=== PATIENT | female | born 2000 | race Caucasian/White ===

== ENCOUNTER 2021-06-04 04:57 | Inpatient (IN) | payer MEDICAID, SELFPAY ==
[2021-06-04 04:57] VITALS: BP 122/86; PULSE 81; RESP 18; TEMP 36.7; O2SAT 99
[2021-06-04 04:59] VITALS: BMI 21.9
[2021-06-04 05:49] VITALS: BMI 21.9
[2021-06-04 06:00] VITALS: TEMP 36.7
[2021-06-04] MEDS: prenatal vitamin Capsule 1 CAP PO (09:25)
[2021-06-04 14:00] VITALS: BP 101/64; PULSE 81; RESP 18; TEMP 36.8; O2SAT 100
--- NOTE | 2021-06-04 14:15 | P.NPUHP_ITS ---
Providers/Chief Complaint Admitting Physician: Jose Carlos Jones MD Chief Complaint: SI HPI NPU History of Present Illness Angelina Yadav is a 21 year old female who presented to an outside hospital secondary to an overdose on pills. There are reports that there is some conflict with her boyfriend about her and him not wanting her to continue with it, so she took an overdose of pills. She presents today reporting she has never had psychiatric hospitalization, she has never had outpatient services, and she has never been on medication. She denies cigarettes, alcohol, marijuana, or any other illicit drugs. She reports she has never been involved with it, never had rehab, never had a DUI. She reports the reason for this situation is stress and hormones. She reports she is stressed because of school and hormones from being . She did not mention the concerns that were raised at the outside hospital. She reports that she does have what she calls stress from time to time. She denies feelings of helplessness, hopelessness, or worthlessness. She denies sleep dysregulation. She denies previous suicide attempts, but when we talked about things moving forward, she reports she has passive wish essentially all the time. She then corrected herself and said not all the time but a lot, that when she gets stressed, she will often have thoughts about just wishing she was not alive. She reports that she is in school, which is stressful, she has a 2-year-old, which is stressful, and mostly the idea of raising a child while being in school has been overwhelming recently at times. When I directly asked her about the issue with her boyfriend and the , she would not identify that that was a driving force, but she was also a very resistant historian, who much of the time during the interview, she would seem annoyed that I was asking the question. She denies any history of self-injurious behavior and denies that there is anything wrong with her. I raised the point that I do not know her well enough to know that there is something specifically wrong with her, but that having a son that is depending on her, a blossoming career through her efforts in school, and all of a sudden taking pills in a suicide attempt, is not a good situation and could reflect something underlying being wrong. PSYCHIATRIC HISTORY: As above. SUBSTANCE ABUSE HISTORY: As above. FAMILY HISTORY: There are no addiction issues on either side of the family, and no suicide attempts or completions in the family reported. DEVELOPMENTAL HISTORY: She denies any issues with her mother?s or delivery of her. She met all developmental milestones on time. She denies any speech therapy, learning support, emotional support, or special education classes. PSYCHOSOCIAL HISTORY: She reports her parents were not really together when she was born, and she is the only product of that union. She has a younger half-sister through her mother and half-siblings through her father, but she does not know how many, and she does not know them. She reports her childhood was fine, and she denied emotional, physical, or sexual abuse. Again, I do not know many of these questions if she would have told me if there was. She denies any other traumas. She reports she graduated from high school, started college in 2019 in biology. She reports that she is interested in natural pharmaceuticals. She endorses being a heterosexual with her longest relationship being off and on for ten years. She reports that she has never been officially . She has a 2-year-old son who turned 2 on May 19. She has never been in the and denies any scientology belief system. 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 She reports she li ves in an apartment with her boyfriend and her son. LEGAL HISTORY: Denied. MEDICAL HISTORY: She denies any issues other than being . She has had one previous . Meds NPU Home Medications Medication Instructions Recorded Confirmed Last Taken Type Multivitamins 1 tab PO DAILY 06/04/21 06/04/21 Unknown History Allergies Allergy/AdvReac Type Severity Reaction Status Date / Time No Known Allergies Allergy Verified 06/04/21 05:55 Mental Status Exam MSE Comments: This is a well-nourished, well-developed, , female, in hospital scrubs, with adequate grooming, and eye contact. No abnormal movements except for mild psychomotor agitation. Semi-cooperative with exam in mild distress. Speech was limited and decreased rate and volume. Mood described as fine; affect irritable. Thought process, organized. Thought content: patient denied any suicidal or homicidal ideation, there were no delusions reported or noted, patient denied any auditory or visual hallucinations. Attention, concentration, and memory appear intact but were not formally tested. She is alert and oriented times three. Insight and judgment appear limited, impulse control limited.. Vitals/I&O/Wt Last Vital Signs Temp 98.3 F 06/04/21 14:00 Pulse 81 06/04/21 14:00 Resp 18 06/04/21 14:00 BP 101/64 06/04/21 14:00 Pulse Ox 100 06/04/21 14:00 Weight last 48 hrs Weight 61.689 kg Weight 61.689 kg A&P Assessment and plan (1) Adjustment disorder with mixed disturbance of emotions and conduct: Status: Acute (2) : Status: Acute (3) Partner relational problem: Status: Acute (4) Overdose: Status: Acute (5) Anxiety: Status: Acute Additional A&P Information This is a 21-year-old, female, with partner relational problem, anxiety, adjustment disorder with mixed disturbance of emotion and conduct, who presents after an intentional overdose. RECOMMENDATION AND PLAN: 1. Continue current medication. We will continue to explore depression/anxiety medications that would be appropriate for , as appropriate. 2. Encourage individual, group, and milieu therapy. 3. Continue q-15 minute checks for safety. Involuntary Hold Information 96 Hour Hold: 96 Hour Involuntary Admission: No Attestations NPU Medical Necessity Statement*: Inpatient hospitalization is medically necessary and the clinically appropriate intervention, at this time. We will monitor medications and make changes as indicated. Patient will be in the hospital for over two midnights. Likely length of stay is three to five days Coding Level of Care Code Acute Transcribing Operator Head for Marko Miller Diagnoses Adjustment disorder with mixed disturbance of emotions and conduct F43.25 Z34.90 Partner relational problem Z63.0 Overdose T50.901A Anxiety F41.9
[2021-06-04 20:20] VITALS: BP 112/76; PULSE 96; RESP 17; TEMP 36.7; O2SAT 98
[2021-06-05 06:00] VITALS: BP 105/71; PULSE 61; RESP 20; TEMP 36.7; O2SAT 99
[2021-06-05] MEDS: prenatal vitamin Capsule 1 CAP PO (08:39)
--- NOTE | 2021-06-05 12:29 | PC.NURSE ---
patient complained of headache and nausea. selling underwriter offered zofran and tylenol. patient said yes and then when meds were pulled and offered again. patient refused meds. Meds wasted.
--- NOTE | 2021-06-05 13:01 | NPU.GN ---
[facility] Topic: Group Discussion/ Choices General Mood of Group: Angelina did attend and participate in group. She was not social, she was very reverted and was not talkative. She would only respond to this functional tester typewriters when spoken with.
[2021-06-05 14:00] VITALS: BP 110/69; PULSE 70; RESP 16; TEMP 36.7; O2SAT 99
--- NOTE | 2021-06-05 15:53 | P.NPUPN_ITS ---
Subjective NPU Subjective: Interval history: Patient presents today continuing to be resistant and fairly irritable. Most of her focus of questioning was surrounding whether she would be discharged how much time do I have left ear. We discussed the concern surrounding her not having any input or thoughts about the overdose given that she is the primary [id number]. She got quiet after that question but really would not engage in how were going to make sure or increase the likelihood that this does not happen again. She is engaged in the magical thinking of it just will not. . Mental Status Exam MSE Comments: This is a well-nourished, well-developed, , female, in hospital scrubs, with adequate grooming, and eye contact. No abnormal movements except for mild psychomotor agitation. Semi-cooperative with exam in mild distress. Speech was limited and decreased rate and volume. Mood described as fine; affect irritable. Thought process, organized. Thought content: patient denied any suicidal or homicidal ideation, there were no delusions reported or noted, patient denied any auditory or visual hallucinations. Attention, concentration, and memory appear intact but were not formally tested. She is alert and oriented times three. Insight and judgment appear limited, impulse control limited. Vitals/I&O/Wt Last Vital Signs Temp 98.0 F 06/05/21 14:00 Pulse 70 06/05/21 14:00 Resp 16 06/05/21 14:00 BP 110/69 06/05/21 14:00 Pulse Ox 99 06/05/21 14:00 Weight last 48 hrs Weight 61.689 kg Weight 61.689 kg A&P Additional A&P Information (1) Adjustment disorder with mixed disturbance of emotions and conduct: (2) : (3) Partner relational problem: (4) Overdose: (5) Anxiety: Additional A&P Information This is a 21-year-old, female, with partner relational problem, anxiety, adjustment disorder with mixed disturbance of emotion and conduct, who presents after an intentional overdose. RECOMMENDATION AND PLAN: 1. Continue current medication. We will continue to explore depression/anxiety medications that would be appropriate for , as appropriate. 2. Encourage individual, group, and milieu therapy. 3. Continue q-15 minute checks for safety. Involuntary Hold Information 96 Hour Hold: 96 Hour Involuntary Admission: No Attestations NPU Medical Necessity Statement*: Inpatient hospitalization is medically necessary and the clinically appropriate intervention, at this time. We will monitor medications and make changes as indicated. Likely length of stay is 2-4 days Coding Level of Care Code Acute Mathematics Education Professor for Marko Miller
[2021-06-06 06:00] VITALS: BP 101/65; PULSE 89; RESP 18; O2SAT 98
[2021-06-06] MEDS: prenatal vitamin Capsule 1 CAP PO (10:13)
--- NOTE | 2021-06-06 12:15 | NPU.GN ---
[facility] Topic:Depression Bingo General Mood of Group: Angelina attended group but was not social and had hear head down. She did not feel good. This copywriter reported it to the nursing staff.
[2021-06-06 14:00] VITALS: RESP 16
--- NOTE | 2021-06-06 17:06 | W.PM.NPUPNS ---
Subjective NPU Subjective: Interval history: Patient presents today reporting that she just wants to go home. She was sitting in her room with her blankets covering her body with a pillow next to the either rocking back and forth. She spent the entire session talking about how being here makes her worse and that this is the type of thing that would make someone suicidal. She somehow in her mind continues to make some difference between being suicidal and taking pills on accident. I tried to explain to her that the accidental pill taking that was out of her control is a scarier consideration than her being suicidal to agree because there is 1 to predict when she could have another accident. She reports that her 2-year-old and her boyfriend prevent her from wanting to do things like this but she cannot explain why it did not prevent her prior to today. She continues wanting to approach this from the nothing is wrong position. Mental Status Exam MSE Comments: This is a well-nourished, well-developed, , female, in hospital scrubs, with adequate grooming, and eye contact. No abnormal movements except for mild to moderate psychomotor agitation. Semi-cooperative with exam in mild to moderate distress. Speech was limited and decreased rate and volume. Mood described as fine; affect emotional and tearful. Thought process, organized. Thought content: patient denied any suicidal or homicidal ideation, there were no delusions reported or noted, patient denied any auditory or visual hallucinations. Attention, concentration, and memory appear intact but were not formally tested. She is alert and oriented times three. Insight and judgment appear limited, impulse control limited. Vitals/I&O/Wt Last Vital Signs Temp 98.0 F 06/05/21 14:00 Pulse 89 06/06/21 06:00 Resp 16 06/06/21 14:00 BP 101/65 06/06/21 06:00 Pulse Ox 98 06/06/21 06:00 A&P Additional A&P Information (1) Adjustment disorder with mixed disturbance of emotions and conduct: (2) : (3) Partner relational problem: (4) Overdose: (5) Anxiety: Additional A&P Information This is a 21-year-old, female, with partner relational problem, anxiety, adjustment disorder with mixed disturbance of emotion and conduct, who presents after an intentional overdose. RECOMMENDATION AND PLAN: 1. Continue current medication. We will continue to explore depression/anxiety medications that would be appropriate for , as appropriate. We will continue to suggest Abilify. 2. Encourage individual, group, and milieu therapy. 3. Continue q-15 minute checks for safety. 4. We will obtain a operating cost clerk consult. Involuntary Hold Information 96 Hour Hold: 96 Hour Involuntary Admission: No Attestations NPU Medical Necessity Statement*: Inpatient hospitalization is medically necessary and the clinically appropriate intervention, at this time. We will monitor medications and make changes as indicated. Likely length of stay is 1-3 days Coding Level of Care Code Acute Publication Distributor for Marko Miller
[2021-06-06 21:07] VITALS: BP 110/68; PULSE 69; RESP 16; TEMP 36.7; O2SAT 99
[2021-06-07 06:00] VITALS: BP 103/68; PULSE 75; RESP 18; TEMP 36.8; O2SAT 98
[2021-06-07] MEDS: prenatal vitamin Capsule 1 CAP PO (09:52)
--- NOTE | 2021-06-07 12:50 | NPU.GN ---
[facility] Topic:Wheel of Positive thoughts versus Negative Thoughts General Mood of Group: Angelina did not attend or participate in group today, she was sick.
[2021-06-07 14:00] VITALS: BP 125/90; PULSE 105; RESP 15; TEMP 37.2; O2SAT 98
--- NOTE | 2021-06-07 16:56 | W.PM.NPUPNS ---
Subjective NPU Subjective: Interval history: Patient presents today reporting that the still does not get she can just go home. Mother came to visit her team. Referral for the below concerns about her safety though they did not put her on a 96-hour hold. They were clear that she acknowledged her overdose and the reasons why she was feeling like she was thinking her significant other not wanting the baby. Now here she is speaking of the overdose as an accident with no volition. And the critical need for her acknowledge the choice she made especially given that she has a 2-year-old who depends on her, so we can we have a plan as to how to avoid returning to the situation again. We also discussed the fact that we will be back in the morning and I would serve as a second opinion as to safety for discharge. Mental Status Exam MSE Comments: This is a well-nourished, well-developed, , female, in hospital scrubs, with adequate grooming, and eye contact. No abnormal movements except for mild to moderate psychomotor agitation. Semi-cooperative with exam in mild distress. Speech was limited and decreased rate and volume. Mood described as fine; affect less emotional and tearful. Thought process, organized. Thought content: patient denied any suicidal or homicidal ideation, there were no delusions reported or noted, patient denied any auditory or visual hallucinations. Attention, concentration, and memory appear intact but were not formally tested. She is alert and oriented times three. Insight and judgment appear limited, impulse control limited. Vitals/I&O/Wt Last Vital Signs Temp 99.0 F 06/07/21 14:00 Pulse 105 H 06/07/21 14:00 Resp 15 06/07/21 14:00 BP 125/90 06/07/21 14:00 Pulse Ox 98 06/07/21 14:00 A&P Additional A&P Information (1) Adjustment disorder with mixed disturbance of emotions and conduct: (2) : (3) Partner relational problem: (4) Overdose: (5) Anxiety: Additional A&P Information This is a 21-year-old, female, with partner relational problem, anxiety, adjustment disorder with mixed disturbance of emotion and conduct, who presents after an intentional overdose. RECOMMENDATION AND PLAN: 1. Continue current medication. We will continue to explore depression/anxiety medications that would be appropriate for , as appropriate. We will continue to suggest Abilify. 2. Encourage individual, group, and milieu therapy. 3. Continue q-15 minute checks for safety. 4. Patient appeared to be having sufficient intake and may have been making the reports to bolster the argument for discharge. Involuntary Hold Information 96 Hour Hold: 96 Hour Involuntary Admission: No Attestations NPU Medical Necessity Statement*: Inpatient hospitalization is medically necessary and the clinically appropriate intervention, at this time. We will monitor medications and make changes as indicated. Likely length of stay is 1-3 days. Coding Level of Care Code Acute Patient Centered Care Specialist for Marko Miller
--- NOTE | 2021-06-07 17:57 | PC.NURSE ---
At this time patient is tearful and anxious. States she feels that no one is listening to her side. Frustrated with being here. Patient advised that staff needed to know that she is able to cope with situation. Patient stated that she cares about life becuase of her child and her . States that she is concerned d/t missing school days. States that she utilizes her son, boyfriend, music, and calling her mom as coping skills. At this time denies that she had an attempt prior to admitting to ED, states that this is just what was said. Patient tearful but remained in control of self and was able to talk about her emotions. Staff monitoring.
[2021-06-07 21:15] VITALS: BP 125/85; PULSE 95; RESP 14; TEMP 36.7; O2SAT 100
[2021-06-08 02:28] LABS: Bilirubin Urine Neg (Negative); Blood Urine Neg (Negative); Glucose Urine UA Norm (Normal); Ketones Urine 2+ (Negative); Nitrate Urine Negative (Negative); Protein Urine Neg (Negative); Specific Gravity, Urine 1.025 (1.005-1.030); Urine Appearance Clear (CLEAR); Urine Color Yellow (Yellow); pH Urine 5 (5-7)
[2021-06-08 02:29] LABS: Bacteria Urine 1+ /hpf; Leukocyte Esterase Urine 2+ (Negative); Mucus Urine 2+ /hpf; RBC Urine 0-4 /hpf (0-2); Squamous Epithelial Cell Urine 25-40 /hpf (0-5); Urobilinogen Urine 1 mg/dL (Negative); WBC Urine 25-40 /hpf (0-5)
[2021-06-08 05:26] VITALS: BP 109/72; PULSE 91; RESP 17; TEMP 36.8; O2SAT 99
[2021-06-08] MEDS: prenatal vitamin Capsule 1 CAP PO (10:09)
--- NOTE | 2021-06-08 10:37 | NPU.GN ---
[facility] Topic:Crisis Plan, Triggers, Coping mechanisms General Mood of Group: Angelina attends group but never participates as she just sits and does not work on activity or socialize with others.
--- NOTE | 2021-06-08 12:11 | W.PM.NPUDCS ---
Diagnoses at Discharge Discharge Diagnosis (1) Adjustment disorder with mixed disturbance of emotions and conduct: Status: Acute (2) : Status: Acute (3) Partner relational problem: Status: Acute (4) Overdose: Status: Acute (5) Anxiety: Status: Acute Reason for Visit Reason for Visit: SI Brief History: History of Present Illness Angelina Yadav is a 21 year old female who presented to an outside hospital secondary to an overdose on pills. There are reports that there is some conflict with her boyfriend about her and him not wanting her to continue with it, so she took an overdose of pills. She presents today reporting she has never had psychiatric hospitalization, she has never had outpatient services, and she has never been on medication. She denies cigarettes, alcohol, marijuana, or any other illicit drugs. She reports she has never been involved with it, never had rehab, never had a DUI. She reports the reason for this situation is stress and hormones. She reports she is stressed because of school and hormones from being . She did not mention the concerns that were raised at the outside hospital. She reports that she does have what she calls stress from time to time. She denies feelings of helplessness, hopelessness, or worthlessness. She denies sleep dysregulation. She denies previous suicide attempts, but when we talked about things moving forward, she reports she has passive wish essentially all the time. She then corrected herself and said not all the time but a lot, that when she gets stressed, she will often have thoughts about just wishing she was not alive. She reports that she is in school, which is stressful, she has a 2-year-old, which is stressful, and mostly the idea of raising a child while being in school has been overwhelming recently at times. When I directly asked her about the issue with her boyfriend and the , she would not identify that that was a driving force, but she was also a very resistant historian, who much of the time during the interview, she would seem annoyed that I was asking the question. She denies any history of self-injurious behavior and denies that there is anything wrong with her. I raised the point that I do not know her well enough to know that there is something specifically wrong with her, but that having a son that is depending on her, a blossoming career through her efforts in school, and all of a sudden taking pills in a suicide attempt, is not a good situation and could reflect something underlying being wrong. PSYCHIATRIC HISTORY: As above. SUBSTANCE ABUSE HISTORY: As above. FAMILY HISTORY: There are no addiction issues on either side of the family, and no suicide attempts or completions in the family reported. DEVELOPMENTAL HISTORY: She denies any issues with her mother?s or delivery of her. She met all developmental milestones on time. She denies any speech therapy, learning support, emotional support, or special education classes. PSYCHOSOCIAL HISTORY: She reports her parents were not really together when she was born, and she is the only product of that union. She has a younger half-sister through her mother and half-siblings through her father, but she does not know how many, and she does not know them. She reports her childhood was fine, and she denied emotional, physical, or sexual abuse. Again, I do not know many of these questions if she would have told me if there was. She denies any other traumas. She reports she graduated from high school, started college in 2019 in biology. She reports that she is interested in natural pharmaceuticals. She endorses being a heterosexual with her longest relationship being off and on for ten years. She reports that she has never been officially . She has a 2-year-old son who turned 2 on May 19. She has never been in the and denies any worship belief system. 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 She reports she lives in an apartment with her boyfriend and her son. Hospital Course Hospital Course She slowly acclimated to the individual, group and milieu therapies provided. She was only given vitamins. She was able to contract for safety outside hospital prior to discharge. During the hospitalization, patient had routine laboratory studies which were within normal limits except for few outliers. Additionally there was a general medical evaluation which was also within normal limits and revealed no new acute processes. Discharge Summary: throughout the hospitalization, lethality was denied. Mood and anxiety were well managed. Patient endorsed a plan to follow-up with the aftercare recommendations of the treatment team. Patient was evaluated and deemed to be absent credible lethality, and had achieved the maximum benefit from an inpatient hospitalization, so was discharged. Involuntary Hold Information 96 Hour Hold: 96 Hour Involuntary Admission: No Mental Status Exam MSE Comments: This is a well-nourished, well-developed, , female, in hospital scrubs, with adequate grooming, and eye contact. No abnormal movements except for mild to moderate psychomotor retardation. Semi-cooperative with exam in mild distress. Speech was limited and decreased rate and volume. Mood depressed but only because I am here for no reason; affect emotional and tearful. Thought process, organized. Thought content: patient denied any suicidal or homicidal ideation, there were no delusions reported or noted, patient denied any auditory or visual hallucinations. Attention, concentration, and memory appear intact but were not formally tested. She is alert and oriented times three. Insight and judgment appears to be limited, impulse control uncertain. Cognition: Patient Appearance: Appropriate Ability to Follow Directions: Excellent Patient Orientation (long list): Person, Place, Time, Birthday and Month Comprehension Ability: No Impairment Hallucination Type: None Delusion Description: Not Present Thought Process: Appropriate Affect: Affect Description: Appropriate, Calm, Flat and Sad Behavior: Patient Behavior: Appropriate and Cooperative Speech Pattern: Appropriate and Clear Discharge Data Data Completed and Pending: Labs from last 24 hours 06/07/21 19:28 Urine Color Yellow Urine Appearance Clear Urine pH 5 Ur Specific Gravit y 1.025 Urine Protein Neg Urine Glucose (UA) Norm Urine Ketones 2+ H Urine Blood Neg Urine Nitrate Negative Urine Bilirubin Neg Urine Urobilinogen 1 H Ur Leukocyte Ailyn ase 2+ H Urine RBC 0-4 H Urine WBC 25-40 H Ur Squamous Epith Cells 25-40 H Amorphous Sediment Not Reportable Urine Bacteria 1+ H Urine Mucus 2+ Vitals: Last Vital Signs Temp 98.2 F 06/08/21 05:26 Pulse 91 06/08/21 05:26 Resp 17 06/08/21 05:26 BP 109/72 06/08/21 05:26 Pulse Ox 99 06/08/21 05:26 Discharge Plan Discharge Patient Disposition: Home Condition: Stable Prescriptions: Continued Multivitamins 1 tab PO DAILY RF: 0 Discharge Orders: Discharge Order (Routine); Ordered 06/08/21 Ordered By: Maicol Harper Discharge Diet: Regular Discharge Activity: Resume usual activity Patient Instructions: Opioid Safety Discharge Attestations NPU Time Spent in Discharge Care*: greater than 30 min Specific Discharge Activities: Specific discharge activities: educating patient, discussing with case supervisor/social workers/dc planners, documenting/other paperwork and evaluating patient/reviewing data Coding Level of Care Code Acute Chg FW DC note Diagnoses Adjustment disorder with mixed disturbance of emotions and conduct F43.25 Z34.90 Partner relational problem Z63.0 Overdose T50.901A Anxiety F41.9
[2021-06-08 12:47] VITALS: BP 109/72; PULSE 91; RESP 17; TEMP 36.8; O2SAT 99
--- NOTE | 2021-06-08 13:51 | NPU.GN ---
[facility] 12:30-13:30 Group Group Topic: Negative and Positive Attributes verses Self Imagery General Mood of Group: Angelina did attend group but she did not participate in the group activity. Although, when called on she did name 3 positive attributes about another patient in group.
== END 2021-06-08 14:23 | disposition home or self-care (01) | DRG 833 ==
PROVIDERS: Admitting Provider Psychiatry & Neurology Psychiatry; Visit Provider Psychiatry & Neurology Psychiatry
DX: O99.340 Other mental disorders complicating pregnancy, unspecified trimester (principal); F43.25 Adjustment disorder with mixed disturbance of emotions and conduct; F41.9 Anxiety disorder, unspecified; Z63.0 Problems in relationship with spouse or partner; Z91.51 Personal history of suicidal behavior; Z3A.00 Weeks of gestation of pregnancy not specified
CPT/HCPCS: 81001; 97150; 97165; Q0162